=== PATIENT | male | born 1965 | race American Indian/Alaskan Native ===

== ENCOUNTER 2016-11-14 06:46 | Day surgery (SDC) | payer MEDICARE ==
[2016-11-14] MEDS ORDERED: Piperacillin/Tazobact 3.375 gm 100 ML IVPB STA (06:57)
[2016-11-14 07:27] VITALS: BMI 34.2
[2016-11-14] MEDS ORDERED: HYDROmorphone 0.5 mg/0.5 ml ISec IVP PRN (08:46)
[2016-11-14] MEDS ORDERED: Lactated Ringer's 1,000 ML IV SCH (09:00)
[2016-11-14] MEDS ORDERED: Propofol 10 mg/ml Inj (20 ML) ONE (09:02)
[2016-11-14] MEDS ORDERED: Midazolam 2 MG/2 ML VIAL ONE (09:03)
[2016-11-14] MEDS ORDERED: ePHEDrine 50 mg/ml Inj ONE (09:09)
[2016-11-14] MEDS ORDERED: Lidocaine 1% Inj (20ml) ONE (09:09)
[2016-11-14] MEDS ORDERED: Phenylephrine 10 mg/ml Inj ONE (09:09)
[2016-11-14] MEDS ORDERED: Rocuronium 10 mg/ml (5 ml) ONE (10:02)
[2016-11-14 11:25] VITALS: TEMP 97.9
[2016-11-14 11:50] VITALS: BP 110/70; PULSE 62; RESP 19; O2SAT 96
--- NOTE | 2016-11-14 15:51 | OP ---
PROCEDURE DATE: 11/14/2016 PREOPERATIVE DIAGNOSES: Urinary retention, prostatic obstruction. POSTOPERATIVE DIAGNOSES: Urinary retention, prostatic obstruction. PROCEDURE: ProTouch 1470 photovaporization of the prostate. SURGEON: Kayden Matson MD ANESTHESIA: LMA. DESCRIPTION OF OPERATION: After adequate LMA anesthesia was given, the patient was placed in lithoto my, prepped and draped in usual manner. The Parks catheter was removed. A 22-Amharic laser scope wit h the obturator in place was introduced under direct vision. He was seen to have bilobar occlusion. The bladder showed no stones, tumors or foreign bodies. There was grade I trabeculation and some ca theter reaction. The obturator was removed. Urine was obtained for C and S. The working element of the laser scope was then reintroduced and using a Sentimentuch laser at a setting of 88, all obstructing tissue was vaporized until there was an unobstructed view from the verumontanum into the bladder. Or ifices were visualized before and after the procedure and were seen to be totally intact. There was no evidence of any bleeding as observed with the water turned off and inspecting the prostatic urethr a. The scope was removed and an 18-Amharic coude catheter was inserted easily with return of clear ur ine. The patient was awakened and brought to recovery room in good condition. Kayden Matson MD cc: [id number] TT: 11/14/2016 15:51:28
== END 2016-11-14 12:19 | disposition home or self-care (01) ==
LOC: SDS 06:46
PROVIDERS: ATTEND Urology
DX: N40.1 Benign prostatic hyperplasia with lower urinary tract symptoms (principal); R33.8 Other retention of urine; I10 Essential (primary) hypertension; I25.10 Atherosclerotic heart disease of native coronary artery without angina pectoris
CPT/HCPCS: 52648; 87086; A4358; J1100; J1170; J2250; J2370; J2405; J2543; J2704; J3010; J7120 ×2